=== PATIENT | female | born 1960 | race Caucasian/White ===

== ENCOUNTER 2024-06-24 11:33 | Emergency (ER) | payer MEDICARE ==
[~2024-06-24] VITALS: Ht 165.1 cm; Wt 45.9 kg
[2024-06-24 11:46] VITALS: BP 136/91; PULSE 78; RESP 18; TEMP 97.6; O2SAT 98
[2024-06-24] MEDS ORDERED: GABA300C PO ×2 (12:19→12:32)
[2024-06-24] MEDS ORDERED: PARO30TA4 PO ×2 (12:20→12:32)
[2024-06-24] MEDS ORDERED: FLUT1AER3 INH ×2 (12:20→12:32)
[2024-06-24] MEDS ORDERED: ARIP5TAB12 PO ×2 (12:20→12:32)
[2024-06-24] MEDS ORDERED: ALBU10.7 (12:20)
[2024-06-24] MEDS ORDERED: ALBU10.7 IH (12:32)
== END 2024-06-24 13:13 | disposition home or self-care (01) ==
LOC: ER 11:34
DX: Z00.8 Encounter for other general examination (principal); Z76.0 Encounter for issue of repeat prescription; Z88.2 Allergy status to sulfonamides; G62.9 Polyneuropathy, unspecified; J44.9 Chronic obstructive pulmonary disease, unspecified; Z88.8 Allergy status to other drugs, medicaments and biological substances
CPT/HCPCS: 99281